=== PATIENT | male | born 1955 | race Caucasian/White ===

== ENCOUNTER 2019-07-27 00:51 | Day surgery (SDC) | payer OTHER, SELFPAY ==
[2019-07-26 13:52] VITALS: BMI 24.4
[2019-07-27 09:59] VITALS: BP 141/87; PULSE 60; RESP 17; TEMP 36.4; O2SAT 100; BMI 25.4
--- NOTE | 2019-07-27 10:02 | WPDANESEPPF ---
Anes - Initial Pre Proc Eval Procedure: Operation Date: 07/27/19 11:00 Proposed Procedures p Esophagogastroduodenoscopy - Kwaku Nair MD Date/Time: 07/27/19 10:02 Surgeon: Kwaku Nair MD Pre Op Diagnosis: Dysphagia Patient Data Age: 64 Gender: M Height: 5 ft 9 in Weight: 78.1 kg Last Vital Signs Temp 36.4 C L 07/27/19 09:59 Pulse 60 07/27/19 09:59 Resp 17 07/27/19 09:59 BP 141/87 H 07/27/19 09:59 Pulse Ox 100 07/27/19 09:59 Allergies Allergy/AdvReac Type Severity Reaction Status Date / Time No Known Allergies Allergy Verified 07/27/19 09:58 Home Medications Medication Instructions Recorded Confirmed Type albuterol sulfate [ProAir HFA] See Rx Instructions .ROUTE .COMPLEX 07/26/19 07/27/19 History fluticasone propion-salmeterol See Rx Instructions .ROUTE 07/26/19 07/27/19 History [Advair Diskus] .COMPLEX PRN levothyroxine 125 mcg PO QAM 07/26/19 07/27/19 History Patient hx anesthesia problems: none Family hx anesthesia problems: none PMFSH Past Medical History Medical History Asthma Head and neck cancer Hypothyroid OSCAR (obstructive sleep apnea) Social History Social History Smoking status: Never smoker Alcohol intake: never Anes - Eval Final PreProcedure Day of Procedure 07/27/19 10:02 Patient weight: normal Heart: regular rate and rhythm Lungs: clear to auscultation Airway: Mallampati scale class II Neurological: alert and oriented Last oral intake: >/= 8 hours ASA classification: III Emergent: no Anesthetic plan: proceed Anesthesia type and monitoring: general GIVS and standard monitoring Informed Consent: The patient's anesthetic plan and its attendant risks and benefits were discussed with the patient/family/POA. Questions were solicited and answers provided to the satisfaction of the patient/family/POA.
--- NOTE | 2019-07-27 10:06 | PM.HPGS ---
History of Present Illness History of Present Illness Consent: Risks, benefits, and alternatives have been discussed and questions answered. Patient agrees to proceed with procedure. Chief complaint: Dysphagia Narrative: Pieter Alarcon is a 64 year old W male referred for EGD secondary history of dysphagia. 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 Patient points to the neck. States once it passes this area he has no substernal discomfort. I suspect this may be cervical in H year related to his previous radiation. [facility] Past Medical History Medical History (Updated 07/27/19 @ 10:06 by Moi Browne MD) Asthma Head and neck cancer Hypothyroid OSCAR (obstructive sleep apnea) Surgical History Surgical History (Updated 07/27/19 @ 10:08 by Kwaku Nair MD) H/O umbilical hernia repair S/P tonsillectomy and adenoidectomy Status post vasectomy Social History Social History Smoking status: Never smoker Alcohol intake: never Meds Home Medications and Allergies Home Medications Medication Instructions Recorded Confirmed Type albuterol sulfate [ProAir HFA] See Rx Instructions .ROUTE .COMPLEX 07/26/19 07/27/19 History fluticasone propion-salmeterol See Rx Instructions .ROUTE 07/26/19 07/27/19 History [Advair Diskus] .COMPLEX PRN levothyroxine 125 mcg PO QAM 07/26/19 07/27/19 History Allergies Allergy/AdvReac Type Severity Reaction Status Date / Time No Known Allergies Allergy Verified 07/27/19 09:58 Vital Signs Vital Signs - 24 hr 07/27/19 09:59 Temperature 36.4 C L Pulse Rate 60 Respiratory Rate 17 Blood Pressure 141/87 H Pulse Oximetry 100 Exam Const: Orientation/consciousness: patient oriented x3 Resp: Auscultation: clear to auscultation bilaterally Cardio: Rate: regular rate Rhythm: regular rhythm Heart sounds: no murmurs GI: GI Palp: Yes Soft to palpation, No Tenderness to palpation present (GI), Yes No hepatosplenomegaly present and No Palpable mass present Auscultation: normal bowel sounds Neuro: General: patient oriented x3 and no focal motor deficits Extrem: General: no pedal edema Assessment and Plan Additional Plan EGD with possible esophageal dilatation for evaluation of cervical dysphagia
[2019-07-27] MEDS: LACTATED RINGERS 1,000 ML 150 ML IV CONT (10:11)
[2019-07-27 10:57] VITALS: BP 115/72; PULSE 58; RESP 20; O2SAT 98
[2019-07-27 11:07] VITALS: BP 118/78; PULSE 55; RESP 20; O2SAT 98
[2019-07-27 11:17] VITALS: BP 113/84; PULSE 57; RESP 20; O2SAT 98
== END 2019-07-27 11:28 | disposition home or self-care (01) ==
PROVIDERS: PCP Internal Medicine; Visit Provider Internal Medicine Gastroenterology
PROC: 0DJ08ZZ Inspection of Upper Intestinal Tract, Via Natural or Artificial Opening Endoscopic (ICD-10-PCS; CPT 43235; principal; 2019-07-27 11:00)
DX: R13.10 Dysphagia, unspecified (principal); K21.0 Gastro-esophageal reflux disease with esophagitis; J45.909 Unspecified asthma, uncomplicated; E03.9 Hypothyroidism, unspecified; G47.33 Obstructive sleep apnea (adult) (pediatric); Z85.810 Personal history of malignant neoplasm of tongue; Z92.21 Personal history of antineoplastic chemotherapy; Z92.3 Personal history of irradiation
CPT/HCPCS: 43239; 88305; J2704; J7120

== ENCOUNTER 2022-03-20 15:56 | Outpatient (CLI) | payer MEDICARE, OTHER, SELFPAY ==
--- NOTE | ~2022-03-20 | XR_ITS ---
XR hip LT 2V w AP pelvis DATE: 03/20/2022 16:31 INDICATION: Chronic left hip pain for years TECHNIQUE: AP pelvis. AP and lateral views of left hip. COMPARISON: None FINDINGS: There is severe degenerative disease at the included L3-4, L4-5 and L5-S1. Normal alignment at the pubic symphysis and sacral iliac joints. No pelvic fracture or bone destructi on is detected. There is severe right hip osteoarthritis and very severe more prominent left hip osteoarthritis. Ther e is flattening and deformity of the left femoral head. There is patchy lucency and sclerosis of the left femoral head suggesting avascular necrosis. No fracture or dislocation of the left hip is noted. 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
== END 2022-03-20 15:57 | disposition home or self-care (01) ==
PROVIDERS: PCP Physician Assistant; Visit Provider Physician Assistant
DX: M25.552 Pain in left hip (principal); M16.0 Bilateral primary osteoarthritis of hip; M51.36 Other intervertebral disc degeneration, lumbar region
CPT/HCPCS: 73502

== ENCOUNTER 2022-09-27 15:10 | Emergency (ER) | payer MEDICARE, OTHER, SELFPAY ==
[2022-09-27] VITALS (9 sets, daily range): BP systolic 126–154; BP diastolic 59–89; PULSE 49–82; RESP 14–19; TEMP 36.4; O2SAT 97–100
--- NOTE | ~2022-09-27 | XR_ITS ---
EXAMINATION: XR chest 1V portable Exam Date/Time: 09/27/2022 15:30 CDT HISTORY: Left arm numbness, heavy feeling in lt side chest. hx asthma Comparison: None available. RESULT: Lines, tubes, and devices: None. Lungs and pleura: Clear. Cardiomediastinal silhouette: Stable. Other: No acute osseous or upper abdominal finding. IMPRESSION: No acute cardiopulmonary process. Reviewed, dictated and finalized at location K.
--- NOTE | ~2022-09-27 | CT_ITS ---
EXAMINATION: CTA brain carotid DATE: 09/27/2022 16:15 INDICATION: left sided numbness TECHNIQUE: Computed tomographic angiography (CTA) of the head and neck was performed with 100 mL Omni paque-350 intravenous contrast. Automated exposure control and iterative reconstruction technique wer e employed. The dose-length product was 1180.69 mGy-cm. Maximum intensity projection and volume rende red 3D-reconstructions were created by the technologist on a separate workstation. COMPARISON: CT brain, same date. FINDINGS: CTA HEAD: No large vessel occlusion, aneurysm, high flow vascular malformation, nidus or extravasation. Patent cerebral veins. Symmetric parenchymal enhancement. Minimal calcifications in the cavernous carotids a nd bilateral intradural distal vertebral arteries, without significant stenosis. CTA NECK: Aortic arch and proximal great vessels: Minimal atherosclerotic calcifications at the visualized aort ic arch and proximal great vessels. Right common carotid, carotid bifurcation, and internal carotid artery: Noncalcified plaque at the ca rotid bifurcation.There is 32% stenosis of the proximal right internal carotid artery relative to nor mal distal artery lumen diameter (NASCET criteria). Left common carotid, carotid bifurcation, and internal carotid artery: Mild calcified plaque at the b ifurcation.There is 0% stenosis of the proximal left internal carotid artery relative to normal dista l artery lumen diameter (NASCET criteria). Vertebral arteries: No significant plaque or stenosis. Other findings: Severe cervical spondylosis. Biapical pleural scarring in the lungs. Paranasal sinus disease. IMPRESSION: 1. No large vessel occlusion. 2. 32% stenosis of the proximal right internal carotid artery. Reviewed, dictated and finalized at location K.
--- NOTE | ~2022-09-27 | CT_ITS ---
EXAMINATION: CT brain wo con DATE: 09/27/2022 15:28 INDICATION: left arm numbness . TECHNIQUE: Computed tomography (CT) of the head was performed without intravenous contrast. The mA wa s adjusted according to patient size. Iterative reconstruction technique was employed. The dose-lengt h product was 605.33 mGy-cm. COMPARISON: None. FINDINGS: No acute intracranial hemorrhage or extra-axial fluid collection. No hydrocephalus, mass, or herniation. No acute ischemic infarct. Unremarkable dural venous sinus attenuation. No acute osseous abnormality. Right frontal and left maxillary opacification. Small bilateral mastoid effusions. The remaining aera arthur spaces are clear. IMPRESSION: No acute intracranial process. Results reported telephonically to Dr. Mcfarland by Dr. Zelaya at 3:38 PM on 09/27/2022. Reviewed, dictated and finalized at location K. IMPRESSION: No acute intracranial process. Results reported telephonically to Dr. Mcfarland by Dr. Zelaya at 3:38 PM on 09/27.
--- NOTE | 2022-09-27 15:23 | ECG_ITS ---
Measurements Intervals [place] Rate: 50 P: 59 AK: 169 QRS: 40 QRSD: 110 T: 58 QT: 405 QTc: 372 Interpretive Statements SINUS BRADYCARDIA INCOMPLETE RIGHT BUNDLE BRANCH BLOCK Electronically Signed On 09-27-2022 15:51:27 CDT by Feliz Adorno M.D.
[2022-09-27 15:26] LABS: Glucose Point of Care 80 mg/dl (65-105)
--- NOTE | 2022-09-27 15:40 | ED.NEUROSD ---
HPI - Neuro Symptoms/Deficit General Chief Complaint: Neuro Symptoms/Deficit Stated Complaint: Left arm numbness and headache Time Seen by Provider: 09/27/22 15:28 Source: patient Mode of arrival: ambulatory Limitations: no limitations History of Present Illness HPI Narrative: 67-year-old otherwise healthy here with complaints of left upper extremity all the way to the waist numbness and tingling sensation associated with unable to get few words and confusion started about half hour ago. He denies any headache, motor weakness. Onset (ago): minute(s) (30) Time: 15:00 Last Observed Normal: 15:00 Location: left arm and other (confusion) History of same: Yes Severity: mild Quality: tingling Relieving factors: none Exacerbating factors: none Context: sudden onset On Anticoagulants: No Associated symptoms: denies other symptoms Treatments Prior to Arrival: none Related Data Home Medications Medication Instructions Recorded Confirmed albuterol sulfate 90 mcg/actuation See Rx Instructions .Route .COMPLEX 07/26/19 07/27/19 aerosol inhaler (ProAir HFA) fluticasone 100 mcg-salmeterol 50 See Rx Instructions .Route 07/26/19 07/27/19 mcg/dose blistr powdr for .COMPLEX PRN Dyspnea inhalation (Advair Diskus) levothyroxine 125 mcg tablet 125 mcg PO QAM 07/26/19 07/27/19 atenolol 25 mg tablet mg 09/27/22 atorvastatin 20 mg tablet mg 09/27/22 09/27/22 Allergies Allergy/AdvReac Type Severity Reaction Status Date / Time No Known Allergies Allergy Verified 09/27/22 15:47 Review of Systems Review of Systems: All systems reviewed & are unremarkable except as noted in HPI and below Constitutional: Constitutional: Reports no additional constitutional complaints Eyes: Eyes: Reports no additional eye complaints ENT: Reports system reviewed and no additional complaints, except as documented Cardiovascular: Cardiovascular: Reports no additional cardiovascular complaints Respiratory: Respiratory: Reports no additional respiratory complaints Gastrointestinal: Gastrointestinal: Reports no additional gastrointestinal complaints Musculoskeletal: Musculoskeletal: Reports no additional musculoskeletal complaints Neurologic: Reports as per HPI Psychiatric: Psychiatric: Reports no additional psychiatric complaints Endocrine: Endocrine: Reports no additional endocrine complaints PMFSH Past Medical History Medical History Asthma Head and neck cancer Hypothyroid OSCAR (obstructive sleep apnea) Surgical History Surgical History H/O umbilical hernia repair S/P tonsillectomy and adenoidectomy Status post vasectomy Social History Social History Smoking status: Never smoker Alcohol intake: never Exam Narrative: GENERAL: Well-appearing, well-nourished, and in no acute distress. HEAD: Normocephalic, atraumatic. EYES: PERRLA and EOMI. ENT: Nares clear, Mucous membranes moist. NECK: Supple. CHEST: Clear to auscultation. No respiratory distress. HEART: Regular rate and rhythm. No murmur heard. Normal peripheral pulses. ABDOMEN: Soft, nontender, nondistended, normal active bowel sounds. EXTREMITIES: Normal range of motion. No edema. SKIN: Warm, dry, no rash. NEURO: No focal deficits. Alert and oriented x3. PSYCH: Normal mood and affect. Course Course Emergency Course: 67-year-old with sudden onset of left upper extremity all the way up to waist numbness and tingling sensation his motor strength is equal on both sides CT of the head and CTA were unremarkable not quite sure whether this is TIA or stroke however related to giving history that he was confused and was unable to get words out could be a small stroke which is not obvious on the CAT scan will admit to the hospital consult neurology. He has no neck pain or radiculopathy. I discussed labs and CT find
[2022-09-27 15:47] LABS: Basophils Absolute Auto 0.1 K/mm3 (0.0-0.1); Basophils Percent Auto 1.8 % (0.2-1.2); Eosinophils Absolute Auto 0.9 K/mm3 (0-0.3); Hematocrit 40.9 % (42.0-52.0); Hemoglobin 12.8 g/dL (14.0-18.0); Immature Granulocyte Absolute 0.02 K/mm3 (0.00-0.031); Immature Granulocyte Percent A 0.3 % (0-0.5); Lymphocytes Absolute Auto 2.79 K/mm3 (0.9-3.2); Lymphocytes Percent Auto 35.1 % (18.3-44.2); Mean Corpuscular HGB Conc 31.3 g/dl (32-36); Mean Corpuscular Hemoglobin 28.8 pg (26-34); Mean Corpuscular Volume 91.9 fl (80-100); Mean Platelet Volume 8.9 fl (7.4-10.4); Monocytes Absolute Auto 0.6 K/mm3 (0.1-0.6); Monocytes Percent Auto 7.8 % (2.6-8.5); Neutrophils Absolute Auto 3.5 K/mm3 (1.3-6.7); Platelet Count Result 242 k/mm3 (150-375); Red Blood Count 4.45 M/mm3 (4.6-6.20); Red Cell Distribution Width 13.2 % (11.5-14.5); White Blood Count 7.9 K/mm3 (4.5-10.0)
[2022-09-27 15:59] LABS: Partial Thromboplastin Time 31.2 SECONDS (22.3-36.8)
[2022-09-27 16:00] LABS: Alanine Aminotransferase 24 U/L (6-50); Albumin Level 4.5 g/dL (3.5-5.1); Alkaline Phosphatase 92 U/L (38-126); Anion Gap 5 mmol/L (8-16); Aspartate Amino Transferase 31 U/L (17-59); Bilirubin,Total 0.4 mg/dL (0.2-1.3); Blood Urea Nitrogen 22 mg/dL (9-20); Calcium 8.5 mg/dL (8.4-10.2); Carbon Dioxide 30 mmol/L (22-30); Chloride 103 mmol/L (98-107); Estimated CRCL calculation 45 ml/min; Estimated Glomerular Filt Rate 51; Glucose 91 mg/dL (65-110); Potassium 4.2 mmol/L (3.4-5.0); Sodium 138 mmol/L (137-145)
[2022-09-27 16:12] LABS: Troponin I < 0.012 ng/mL (0.000-0.034)
--- NOTE | 2022-09-27 16:12 | PC.NURSE ---
Pt taken to Ct of head and neck, pt spouse at bedside.
--- NOTE | 2022-09-27 18:00 | PM.IMHP ---
H&P: HPI History of Present Illness Date/Time: 09/27/22 18:00 Chief Complaint: Left-sided numbness. Narrative: This is a 67-year-old male with hypertension, hyperlipidemia, and hypothyroidism who presented to the emergency department from home for evaluation of left arm numbness. Patient provides the following history. Approximately 30 minutes prior to arrival he reports the sudden onset of a heavy feeling throughout the entire left side of his body from the waist up. He was sitting down and was reading a book when the symptoms began. He felt as though he was having difficulties understanding the words, like they did not make sense. Blood pressures were 154/83 on arrival to the ED. Brain CT showed no acute intracranial process. CTA of the head and neck showed no large vessel occlusion and 32% stenosis of the proximal right internal carotid artery. ED physician discussed the case with on-call neurologist, Dr. Escobar, and she recommends admission for close monitoring and stroke workup. Reports he does not meet criteria for tPA with an NIH score of 1. I went to see the patient in the emergency department to do his admission at which time he felt that he may have over reacted however he still has some paresthesias of the left arm. He traveled quite a bit over the last couple of weeks in skied over 500 miles and he is wondering if his symptoms may be related to that. We did not get past the interview portion of the history and physical as he decided that he wanted to leave against medical advice and assured me that he would follow up with his doctor at the earliest opportunity. He was instructed to come back to the emergency department at any time for re-evaluation or if he has a change in condition. He understands that he may very well have had a stroke even though his brain CT showed no acute finding as the imaging was taken very early after the onset of his symptoms. We did review his brain CT and CTA of the head and neck. I encouraged him to stay overnight for monitoring an MRI tomorrow but he declined. [facility] Past Medical History Medical History Asthma Head and neck cancer (2014) History chemoradiation. Hypothyroidism Obstructive sleep apnea on CPAP Skin cancer Surgical History Surgical History (Updated 09/27/22 @ 18:17 by Penny Mac PA-C) History of tonsillectomy and adenoidectomy History of umbilical hernia repair History of vasectomy Social History Social History Smoking status: Never smoker Alcohol intake: never Meds Home Medications and Allergies Home Medications Medication Instructions Recorded Confirmed Type albuterol sulfate 90 mcg/actuation See Rx Instructions .Route .COMPLEX 07/26/19 07/27/19 History aerosol inhaler (ProAir HFA) fluticasone 100 mcg-salmeterol 50 See Rx Instructions .Route 07/26/19 07/27/19 History mcg/dose blistr powdr for .COMPLEX PRN Dyspnea inhalation (Advair Diskus) levothyroxine 125 mcg tablet 125 mcg PO QAM 07/26/19 07/27/19 History atenolol 25 mg tablet mg 09/27/22 History atorvastatin 20 mg tablet mg 09/27/22 09/27/22 History Allergies Allergy/AdvReac Type Severity Reaction Status Date / Time No Known Allergies Allergy Verified 09/27/22 15:47 Vital Signs Vital Signs - 24 hr 09/27/22 15:12 09/27/22 15:40 09/27/22 15:41 Temperature 97.6 F Pulse Rate 53 L 52 L 53 L Respiratory Rate 14 18 Blood Pressure 154/83 H 129/59 L Pulse Oximetry 100 99 Oxygen Delivery Room Air 09/27/22 15:41 09/27/22 15:41 09/27/22 15:46 Temperature Pulse Rate 82 52 L 52 L Respiratory Rate 18 19 19 Blood Pressure 145/81 H 145/81 H 137/88 Pulse Oximetry 100 98 97 Oxygen Delivery 09/27/22 16:01 09/27/22 16:17 09/27/22 17:32 Temperature Pulse Rate 49 L 49 L 50 L Respiratory Rate 19 14 19 Blood Pressure 126/81 140/80 133/89 Pulse Oximet
== END 2022-09-27 19:34 | disposition left against medical advice (07) ==
LOC: ANHED 17:27 → ANH2MED 19:32
PROVIDERS: Emergency Provider Family Medicine; PCP Physician Assistant
DX: G45.9 Transient cerebral ischemic attack, unspecified (principal); E03.9 Hypothyroidism, unspecified; J45.909 Unspecified asthma, uncomplicated
CPT/HCPCS: 36415; 70450; 70496; 70498; 71045; 80053; 82948; 84484; 85025; 85610; 85730; 93005; 99284; Q9967